=== PATIENT | female | born 1980 | race Caucasian/White ===

== ENCOUNTER 2020-10-12 09:49 | Outpatient (REF) | payer OTHER, SELFPAY ==
[2020-10-12 11:25] LABS: MANUAL DIFF FLAG NO
[2020-10-12 11:35] LABS: Basophils Absolute Auto 0.1 X10*3/uL (0.0-0.2); Basophils Percent Auto 1.1 % (0-2); Eosinophils Absolute Auto 0.1 X10*3/uL (0.0-0.4); Eosinophils Percent Auto 1.5 % (0-4); Hematocrit 40.7 % (37-47); Hemoglobin 13.5 g/dl (12.0-16.0); Imm Gran Abs Auto 0.02 X10*3/uL (0.00-0.03); Imm Gran Pct Auto 0.4 % (0.0-0.4); Lymphocytes Absolute Auto 1.6 X10*3/uL (1.2-4.9); Lymphocytes Percent Auto 28.7 % (20-40); Mean Corpuscular HGB Conc 33.2 g/dl (31.0-35.0); Mean Corpuscular Hemoglobin 32.5 pg (27.0-33.0); Mean Corpuscular Volume 97.8 fL (80-98); Mean Platelet Volume 10.8 fL (9.4-12.3); Monocytes Absolute Auto 0.4 X10*3/uL (0.1-1.2); Neutrophils Absolute Auto 3.3 X10*3/uL (2.0-8.3); Neutrophils Percent Auto 61.3 % (45-73); Platelet Count 234 X10*3/uL (160-400); Red Blood Count 4.16 X10*6/uL (4.20-5.50); Red Cell Distribution Width 12.6 % (11.0-16.0); White Blood Count 5.4 X10*3/uL (4.8-10.8)
[2020-10-12 11:48] LABS: Alanine Aminotransferase 16 U/L (0-31); Albumin Level 4.4 g/dL (3.5-5.0); Alkaline Phosphatase 49 U/L (39-117); Anion Gap 13 (12-20); Aspartate Amino Transferase 17 U/L (5-31); Bilirubin Total 0.2 mg/dL (0.0-1.0); Blood Urea Nitrogen 15 mg/dL (9-16); Calcium 8.9 mg/dL (8.4-10.2); Carbon Dioxide 25 mmol/L (22-29); Chloride 105 mmol/L (96-108); Cholesterol 178 mg/dL; Estimated Glomerular Filt Rate > 60; Glucose Fasting 93 mg/dL (60-99); HDL Cholesterol 49 mg/dL; LDL Cholesterol Calculated 117 mg/dl; Potassium 4.5 mmol/L (3.3-5.1); Sodium 138 mmol/L (135-145); Total Protein 6.7 g/dL (6.5-8.0); Triglycerides 60 mg/dL
== END 2020-10-12 09:50 | disposition home or self-care (01) ==
LOC: HO.MANLDS 09:49
PROVIDERS: PCP Internal Medicine; Visit Provider Physician Assistant
DX: Z00.00 Encounter for general adult medical examination without abnormal findings (principal); Z13.220 Encounter for screening for lipoid disorders
CPT/HCPCS: 36415; 80053; 80061; 85025

== ENCOUNTER 2021-10-21 09:31 | Outpatient (REF) | payer OTHER, SELFPAY ==
[2021-10-21 11:24] LABS: MANUAL DIFF FLAG NO
[2021-10-21 11:39] LABS: Basophils Absolute Auto 0.1 X10*3/uL (0.0-0.2); Eosinophils Absolute Auto 0.1 X10*3/uL (0.0-0.4); Eosinophils Percent Auto 1.2 % (0-4); Hematocrit 39.7 % (37.0-47.0); Hemoglobin 13.3 g/dl (12.0-16.0); Lymphocytes Absolute Auto 1.6 X10*3/uL (1.2-4.9); Lymphocytes Percent Auto 30.5 % (20-40); Mean Corpuscular HGB Conc 33.5 g/dl (31.0-35.0); Mean Corpuscular Hemoglobin 32.7 pg (27.0-33.0); Mean Corpuscular Volume 97.5 fL (80.0-98.0); Mean Platelet Volume 10.8 fL (9.4-12.3); Monocytes Absolute Auto 0.4 X10*3/uL (0.1-1.2); Monocytes Percent Auto 7.5 % (2-11); Neutrophils Percent Auto 59.8 % (45-73); Platelet Count 259 X10*3/uL (160-400); Red Blood Count 4.07 X10*6/uL (4.20-5.50); Red Cell Distribution Width 12.4 % (11.0-16.0); White Blood Count 5.1 X10*3/uL (4.8-10.8)
[2021-10-21 11:56] LABS: Alanine Aminotransferase 17 U/L (0-31); Albumin Level 4.3 g/dL (3.5-5.0); Alkaline Phosphatase 55 U/L (39-117); Anion Gap 12 (12-20); Aspartate Amino Transferase 20 U/L (5-31); Bilirubin Total 0.5 mg/dL (0.0-1.0); Blood Urea Nitrogen 12 mg/dL (9-16); Calcium 9.4 mg/dL (8.4-10.2); Carbon Dioxide 27 mmol/L (22-29); Chloride 105 mmol/L (96-108); Cholesterol 184 mg/dL; Estimated Glomerular Filt Rate > 60; Glucose Random 95 mg/dL (60-115); HDL Cholesterol 41 mg/dL; LDL Cholesterol Calculated 126 mg/dl; Potassium 4.7 mmol/L (3.3-5.1); Sodium 139 mmol/L (135-145); Total Protein 6.8 g/dL (6.5-8.0); Triglycerides 87 mg/dL
== END 2021-10-21 09:32 | disposition home or self-care (01) ==
LOC: HO.MANLDS 09:31
PROVIDERS: Visit Provider Physician Assistant
DX: Z00.00 Encounter for general adult medical examination without abnormal findings (principal)
CPT/HCPCS: 36415; 80053; 80061; 85025

== ENCOUNTER 2021-12-01 09:59 | Emergency (ER) | payer OTHER, SELFPAY ==
--- NOTE | ~2021-12-01 | CT_ITS ---
EXAMINATION: CT CERVICAL SPINE WITHOUT CONTRAST CLINICAL INFORMATION: Third-fifth finger tingling. Evaluate for compression. COMPARISON: None TECHNIQUE: Multidetector CT imaging of the cervical spine was performed without use of intravenous contrast. Coronal and sagittal reformats are reviewed. This CT examination was performed using dose optimization techniques as appropriate, variously including the following: *Automated exposure control *Adjustment of mA and/or kV according to patient size (this includes techniques or standardized protocols for targeted exams where dose is matched to indication/reason for exam; i.e. extremities or head) *Use of iterative reconstruction technique DLP: 680 mGy-cm FINDINGS: No acute fracture or traumatic malalignment. Mild loss of disc space height associated endplate osteophytes and uncovertebral arthrosis present at C5-C6. Suspect mild left foraminal narrowing at C5-C6. Remainder of the neural foramina are widely patent from a CT imaging standpoint. There may be mild central canal stenosis at C5-C6 and C6-C7, related to disc herniations at these levels. No suspicious osseous lesions. Paraspinal soft tissues unremarkable. Imaged lung apices are clear. CT/CT cervical spine wo con IMPRESSION: * No acute fracture or traumatic malalignment. 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 * Mild left foraminal narrowing at C5-C6. * Disc herniations at C5-C6 and C6-C7 may cause a degree of central canal stenosis.
[2021-12-01 10:02] VITALS: BP 129/59; PULSE 58; RESP 18; TEMP 37.1; O2SAT 99; BMI 34.4
--- NOTE | 2021-12-01 10:35 | ED.EXTPRO ---
HPI - Extremity Problem General Chief complaint: Extremity Problem Stated complaint: tingling in l hand has cyst Time Seen by Provider: 12/01/21 10:09 Source: patient Mode of arrival: ambulatory History of Present Illness HPI Narrative: 40-year-old female with a past medical history of ganglion cyst, presenting to the ED complaining left 3rd through 5th finger tingling x6 weeks. Reports symptoms started spontaneously and have been persistent since onset. Saw PCP who referred her to Orthopedics. Admits has ganglion cyst to left wrist x8 months which has been unchanged. Reports tingling/discomfort radiates up LUE. Denies neck pain, trauma, injury, fever, weakness. Cannot get orthopedic appointment until December Complaint: extremity pain Onset (ago): month(s) Pain Consistency: constant Related Data Allergies Allergy/AdvReac Type Severity Reaction Status Date / Time No Known Allergies Allergy Verified 12/01/21 10:01 Review of Systems Review of Systems: Constitutional: No Fever, No Chills, No Fatigue, No Malaise ENT/Mouth: No Ear Pain, No Nasal Congestion, No sore throat, No Rhinorrhea, No Swallowing Difficulty Eyes: No Eye Pain, No Swelling, No Redness, No Vision Changes Cardiovascular: No Chest Pain, No SOB, No Dyspnea on Exertion, No Orthopnea, No Edema, No Palpitations Respiratory: No Cough, No Sputum, No Dyspnea Gastrointestinal: No Nausea, No Vomiting, No Abdominal pain Genitourinary: No Dysuria, No Urinary Frequency, No Hematuria, No Urinary Incontinence/retention Musculoskeletal: No joint pain, No Myalgias, No Joint Swelling Skin: No Skin Lesions, No rash Neuro: No Weakness, + Numbness, + Paresthesias, No Loss of Consciousness, No Dizziness, No Headache Yes all other systems are reviewed and are negative Neurologic: Denies Sensory deficit (Neuro) [facility] Past Medical History Attestation statement: The following information was validated with the patient. Social History Social History Advance Directives: No Advance Directives Information Provided: No Physical Exam Vital Signs: Vital Signs: Last Vital Signs Temp 98.7 F 12/01/21 10:02 Pulse 58 12/01/21 10:02 Resp 18 12/01/21 10:02 BP 129/59 L 12/01/21 10:02 Pulse Ox 99 12/01/21 10:02 BMI result Body Mass Index 34.4 Const: General: cooperative, healthy appearing and no acute distress Orientation/consciousness: patient oriented x3 Limitations: no limitations HEENT: Head: Yes normal to inspection and Yes atraumatic Ears: hearing grossly normal bilaterally General nose exam: Normal external nose present Face and sinus: Yes normal facial exam Eyes: General: appearance normal, both eyes and all related structures EOM: EOMs intact bilaterally Neck: Other: No midline cervical spinous tenderness Neck: Yes normal visual inspection, Yes no meningeal signs and No anterior neck swelling Resp: Effort & Inspection: normal respiratory effort and no respiratory distress Auscultation: clear to auscultation bilaterally Cardio: Rate: regular rate Heart sounds: S1 normal heart sound present and S2 normal heart sound present Peripheral pulses: brachial pulses present and radial pulses present Skin: Rashes: no rashes Wounds: no wounds Neuro: General: patient oriented x3, gait normal, tone normal, moves all extremities, no meningeal signs and no focal motor deficits Gait exam (Neuro): Normal gait present Sensory Exam: No Sensory deficit (Neuro) Extrem: Other: Left hand/wrist without noted deformity/erythema. Small ganglion cyst noted to volar aspect without overlying erythema. Mildly tender. Negative Tinel and Phalen sign. Sensation intact to light touch. Full range of motion intact General: Yes normal to inspection Course Course Course Narrative: CT cervical spine wo con IMPRESSION: *? No acute fracture or traumatic malalignment. *? 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 *? Mild left foraminal narrowing at C5-C6. *? Disc herniations at C5-C6 and C6-C7 may cause a degree of central canal stenosis. > results discussed with patient. Recommended follow-up with neurosurgery and Orthopedics. Supplied with volar splint for wrist comfort. Discussed worrisome signs and symptoms and when to return to the emergency department MDM - Extremity (Nontraumatic) MDM Narrative Medical decision making narrative: 40-year-old female with a past medical history of ganglion cyst, presenting to the ED complaining left 3rd through 5th finger tingling x6 weeks. On exam vital signs stable, NAD, nontoxic appearing, small ganglion cyst noted to left wrist, full range of motion and sensation intact without appreciable weakness. No midline cervical spinous tenderness. Concern for compressive neuropathy vs nerve entrapment vs ?Carpal tunnel. Symptoms atypical for ACS Plan: Cervical spine CT, volar wrist splint, orthopedic follow-up Medical Records Attestation: I reviewed the patient's medical records. Lab Data Attestation: I reviewed the patient's lab results. Procedures Orthopedic Splinting/Casting Injury #1: Side: left Upper Extremity Injury Location: wrist Upper Extremity Immobilizer: volar splint Discharge Plan Discharge Clinical Impression: Cervical disc herniation Patient Disposition: Home, Self-Care Instructions: Cervical Disc Herniation (ED) Additional Instructions: Your CT scan shows some disc herniations at levels C5-C6 and C6-C7 as well as some degenerative changes. It is important for you to follow-up with the neurosurgeon. You also should follow up with Orthopedics. Wear wrist splint at home for comfort and stability. If her symptoms persist or worsen, he developed weakness, fever, headache, lightheadedness or dizziness return to the emergency department Referrals: Cielo Moreno MD [Physician] - Love Finch MD [Physician] -
== END 2021-12-01 13:28 | disposition home or self-care (01) ==
PROVIDERS: Emergency Provider Emergency Medicine; PCP Internal Medicine
DX: S69.92XA Unspecified injury of left wrist, hand and finger(s), initial encounter (principal); M50.222 Other cervical disc displacement at C5-C6 level; X58.XXXA Exposure to other specified factors, initial encounter; Y93.9 Activity, unspecified; Y92.9 Unspecified place or not applicable; Y99.9 Unspecified external cause status
CPT/HCPCS: 29125; 72125; 99283; 99284

== ENCOUNTER 2022-10-23 09:36 | Outpatient (REF) | payer OTHER, SELFPAY ==
[2022-10-23 11:44] LABS: Estimated Average Glucose 97 mg/dL
[2022-10-23 12:06] LABS: Erythrocyte Sedimentation Rate 6 MM/HR (0-20)
[2022-10-23 12:07] LABS: Syphilis Screen Nonreactive (Nonreactive)
[2022-10-23 12:19] LABS: Alanine Aminotransferase 23 U/L (0-31); Alkaline Phosphatase 49 U/L (39-117); Anion Gap 12 (12-20); Aspartate Amino Transferase 16 U/L (5-31); Bilirubin Total 0.4 mg/dL (0.0-1.0); Blood Urea Nitrogen 11 mg/dL (9-16); C Reactive Protein 0.19 mg/dL (< or = 0.50); Calcium 8.7 mg/dL (8.4-10.2); Carbon Dioxide 27 mmol/L (22-29); Chloride 107 mmol/L (96-108); Estimated Glomerular Filt Rate > 60; Glucose Random 93 mg/dL (60-115); Potassium 4.4 mmol/L (3.3-5.1); Sodium 142 mmol/L (135-145); Total Protein 6.1 g/dL (6.5-8.0)
[2022-10-23 12:27] LABS: Folate 10.3 ng/mL (> or = 4.0); Free T4 (Free Thyroxine) 0.85 ng/dL (0.71-1.85); Thyroid Stimulating Hormone 1.37 uIU/mL (0.32-4.0); Vitamin B12 359 pg/mL (200-900); Vitamin D 25-OH Total 36.5 ng/mL (>30)
== END 2022-10-23 09:37 | disposition home or self-care (01) ==
LOC: HO.MANLDS 09:36
PROVIDERS: Visit Provider Physician Assistant
DX: R41.3 Other amnesia (principal)
CPT/HCPCS: 36415; 80053; 82306; 82607; 82746; 83036; 84439; 84443; 85652; 86140; 86780

== ENCOUNTER 2024-11-12 10:16 | Outpatient (REF) | payer OTHER, SELFPAY ==
--- OUTSIDE RECORDS SUMMARY | 2024-11-12 11:55 | XMS_ITS | Patient Health Record ---
Author Organization [facility] Karol jacqueline Brandon Address [address] [place] [address] Care Team Providers Care Test Rider Name Role Phone Alisson BRADY, Brayden Primary Care Provider Austin Spain Unavailable [phone] Allergies No Known Allergies Reason For Referral No Information Medications Medication SIG (Take, Route, Frequency, Duration) Notes Start Date End Date Status Physical Therapy . . . 2-3x/week for 3-4 weeks Active Night Splint AFO - L1930 as directed Active Nabumetone 750 MG 1 tablet Orally ONCE A DAY WITH FOOD for 30 day(s) Active Social History Tobacco Use: Social History Observation Description Date Details (start date - stop date) Current Smoker NA - NA Tobacco Use/Smoking Question Answer Notes Are you a: current smoker How often do you smoke cigarettes? every day How many cigarettes a day do you smoke? 11-20 Alcohol Screen Question Answer Notes Did you have a drink containing alcohol in the p ast year? Yes Points 0 Interpretation Negative Tobacco use other than smoking: Question Answer Notes Are you an other tobacco user? No Plan Of Treatment Pending Test Test Name Order Date X ray : Foot, left 3V 12/13/2022 X ray : Foot, right 3V 12/13/2022 Insurance Providers Payer Name Payer Address Payer Phone Subscriber Number Group Number Insured Name Patient Relationship to Insured Coverage Start Date Coverage End Date [facility] [place] [address] [id number] Antonio Bauman Spouse - patient is the spouse of the insured Medical (General) History Medical History History ICD Code Back,Hip,and Knee pain Chicken pox Surgical History Surgery Date(Month/Year)
[2024-11-12 13:12] LABS: MANUAL DIFF FLAG NO
[2024-11-12 13:29] LABS: Basophils Absolute Auto 0.1 X10*3/uL (0.0-0.2); Basophils Percent Auto 1.2 % (0-2); Eosinophils Absolute Auto 0.1 X10*3/uL (0.0-0.4); Hematocrit 38.3 % (37.0-47.0); Hemoglobin 13.3 g/dl (12.0-16.0); Imm Gran Abs Auto 0.01 X10*3/uL (0.00-0.03); Imm Gran Pct Auto 0.2 % (0.0-0.4); Lymphocytes Absolute Auto 1.9 X10*3/uL (1.2-4.9); Mean Corpuscular HGB Conc 34.7 g/dl (31.0-35.0); Mean Corpuscular Hemoglobin 32.9 pg (27.0-33.0); Mean Corpuscular Volume 94.8 fL (80.0-98.0); Mean Platelet Volume 10.7 fL (9.4-12.3); Monocytes Absolute Auto 0.4 X10*3/uL (0.1-1.2); Monocytes Percent Auto 6.1 % (2-11); Neutrophils Absolute Auto 3.6 x10*3/uL (2.0-8.3); Neutrophils Percent Auto 59.5 % (45-73); Platelet Count 220 X10*3/uL (160-400); Red Blood Count 4.04 X10*6/uL (4.20-5.50); Red Cell Distribution Width 12.4 % (11.0-16.0)
[2024-11-12 13:46] LABS: Estimated Average Glucose 103 mg/dL; Hemoglobin A1c % 5.2 % (<6.0)
[2024-11-12 14:08] LABS: Alanine Aminotransferase 13 U/L (0-31); Albumin Level 4.5 g/dL (3.5-5.0); Alkaline Phosphatase 49 U/L (39-117); Anion Gap 13 (12-20); Aspartate Amino Transferase 19 U/L (5-31); Bilirubin Total 0.4 mg/dL (0.0-1.0); Blood Urea Nitrogen 12 mg/dL (9-16); Calcium 9.2 mg/dL (8.4-10.2); Carbon Dioxide 27 mmol/L (22-29); Chloride 106 mmol/L (96-108); Estimated Glomerular Filt Rate > 60; Glucose Random 92 mg/dL (60-115); Sodium 142 mmol/L (135-145); Total Protein 6.7 g/dL (6.5-8.0)
[2024-11-12 14:12] LABS: Free T4 (Free Thyroxine) 1.13 ng/dL (0.71-1.85); Insulin 6 uU/mL (2-29); Thyroid Stimulating Hormone 1.78 uIU/mL (0.32-4.0)
[2024-11-12 14:15] LABS: Cortisol Random 7.5 ug/dL
[2024-11-13 05:43] LABS: Follicle Stimulating Hormone 31.4 mIU/mL; Lutenizing Hormone 9.9 mIU/mL
[2024-11-17 19:18] LABS: Estrogen 52 pg/mL
[2024-11-24 03:43] LABS: Progesterone <0.1 ng/mL
[2024-11-27 04:42] LABS: Estradiol Free 0.19 pg/mL; Estradiol, Ultrasensitive 8 pg/mL
== END 2024-11-12 10:17 | disposition home or self-care (01) ==
LOC: HO.MANLDS 10:16
PROVIDERS: Visit Provider Physician Assistant
DX: R63.5 Abnormal weight gain (principal); R60.0 Localized edema
CPT/HCPCS: 36415; 80053; 82533; 82670; 82672; 82681; 83001; 83002; 83036; 83525; 84144; 84439; 84443; 85025

== ENCOUNTER 2025-04-07 11:02 | Outpatient (REF) | payer OTHER, SELFPAY ==
[2025-04-07 13:59] LABS: MANUAL DIFF FLAG NO
[2025-04-07 14:28] LABS: Alanine Aminotransferase 16 U/L (0-31); Albumin Level 4.7 g/dL (3.5-5.0); Alkaline Phosphatase 49 U/L (39-117); Anion Gap 13 (12-20); Aspartate Amino Transferase 23 U/L (5-31); Blood Urea Nitrogen 11 mg/dL (9-16); Calcium 9.0 mg/dL (8.4-10.2); Carbon Dioxide 28 mmol/L (22-29); Chloride 105 mmol/L (96-108); Cholesterol 181 mg/dL (<200); Estimated Glomerular Filt Rate > 60; HDL Cholesterol 43 mg/dL (>40); Potassium 4.5 mmol/L (3.3-5.1); Sodium 141 mmol/L (135-145); Total Protein 6.9 g/dL (6.5-8.0); Triglycerides 91 mg/dL (<150)
[2025-04-07 14:31] LABS: Hematocrit 42.4 % (37.0-47.0); Hemoglobin 14.0 g/dl (12.0-16.0); Imm Gran Abs Auto 0.01 X10*3/uL (0.00-0.03); Imm Gran Pct Auto 0.1 % (0.0-0.4); Lymphocytes Absolute Auto 2.0 X10*3/uL (1.2-4.9); Mean Corpuscular HGB Conc 33.0 g/dl (31.0-35.0); Mean Corpuscular Hemoglobin 32.2 pg (27.0-33.0); Mean Corpuscular Volume 97.5 fL (80.0-98.0); NRBC Abs Auto 0.000 X10*3/uL (0.0-0.012); NRBC Pct Auto 0.0 /100WBC (0.0-0.2); Platelet Count 247 X10*3/uL (160-400); Red Blood Count 4.35 X10*6/uL (4.20-5.50); White Blood Count 6.7 X10*3/uL (4.8-10.8)
[2025-04-08 06:04] LABS: Follicle Stimulating Hormone 12.4 mIU/mL
== END 2025-04-07 11:03 | disposition home or self-care (01) ==
LOC: HO.MANLDS 11:02
PROVIDERS: Visit Provider Internal Medicine
DX: Z00.00 Encounter for general adult medical examination without abnormal findings (principal); N92.6 Irregular menstruation, unspecified; Z13.6 Encounter for screening for cardiovascular disorders; Z13.21 Encounter for screening for nutritional disorder
CPT/HCPCS: 36415; 80053; 80061; 82306; 83001; 83002; 85025